=== PATIENT | female | born 1995 | race Caucasian/White ===

== ENCOUNTER → 2016-07-08 | Outpatient (REF) | payer OTHER | LOC: M SFHCWAGY 10:02 | PROVIDERS: ATTEND Nurse Practitioner Women's Health | DX: Z12.4 Encounter for screening for malignant neoplasm of cervix (principal) ==

== ENCOUNTER → 2017-03-21 | Outpatient (REF) | payer OTHER | LOC: M SFHCWAGY 17:25 | DX: R30.0 Dysuria (principal) ==

== ENCOUNTER → 2017-05-07 | Outpatient (REF) | payer OTHER ==
[2017-05-07 18:13] LABS: HEMOGLOBIN 12.5 g/dl (12.0-16.0); MEAN CORPUSCULAR HEMOGLOBIN 29.5 pg (27.0-33.0); MEAN CORPUSCULAR HGB CONC 32.9 g/dl (32.0-36.5); MEAN CORPUSCULAR VOLUME 89.6 fl (80.0-96.0); PLATELET COUNT, AUTOMATED 233 10^3/uL (150-450); RED BLOOD COUNT 4.24 10^6/uL (4.00-5.40); RED CELL DISTRIBUTION WIDTH 12.1 % (11.5-14.5); WHITE BLOOD COUNT 6.2 10^3/uL (4.0-10.0)
[2017-05-07 18:26] LABS: FREE T4 1.14 NG/DL (0.76-1.46)
[2017-05-09 10:15] LABS: TISSUE TRANSGLUTAMINASE IgA <2 U/mL (0-3)
[2017-05-09 10:15] LABS: TISSUE TRANSGLUTAMINASE IgG <2 U/mL (0-5)
== END ==
LOC: M SFHCPLAZ 11:39
DX: R53.82 Chronic fatigue, unspecified (principal); R10.9 Unspecified abdominal pain
CPT/HCPCS: 84443

== ENCOUNTER → 2017-06-13 | Outpatient (REF) | payer OTHER ==
[2017-06-13 14:45] LABS: CHLAMYDIA DNA AMPLIFICATION NEGATIVE (NEGATIVE); GC DNA AMPLIFICATION NEGATIVE (NEGATIVE)
== END ==
LOC: M SFHCWAGY 11:51
DX: Z11.3 Encounter for screening for infections with a predominantly sexual mode of transmission (principal)

== ENCOUNTER → 2017-06-19 | Outpatient (CLI) | payer OTHER | LOC: M WHC 11:29 | DX: R10.30 Lower abdominal pain, unspecified (principal) | CPT/HCPCS: 76830 ==

== ENCOUNTER → 2017-07-31 | Outpatient (REF) | payer OTHER ==
[2017-08-06 00:06] LABS: BABESIOSIS LEVEL IGG <1:10 (Neg:<1:10); BABESIOSIS LEVEL IGM <1:10 (Neg:<1:10); EBV PCR QUANTITATIVE Negative copies/mL (Negative); Lyme Disease IgG/IgM Antibodie <0.91 ISR (0.00-0.90); Lyme Disease IgM Ab Quantitati <0.80 index (0.00-0.79)
== END ==
LOC: M SFHCPLAZ 11:22
DX: R19.4 Change in bowel habit (principal); R53.82 Chronic fatigue, unspecified

== ENCOUNTER → 2017-08-01 | Outpatient (REF) | payer OTHER | LOC: M SFHCPLAZ 11:11 | DX: R19.4 Change in bowel habit (principal) ==

== ENCOUNTER → 2017-08-08 | Outpatient (CLI) | payer OTHER ==
[~2017-08-08] MED LIST: GASTROGRAFIN SOLUTION 30ML (Q9963) As Ordered; ISOVUE-370 76% 100ML VIAL (Q9967) As Ordered
== END ==
LOC: M RAD 14:23
DX: R10.31 Right lower quadrant pain (principal); N94.10 Unspecified dyspareunia; R19.4 Change in bowel habit
CPT/HCPCS: Q9963

== ENCOUNTER → 2018-05-15 | Outpatient (REF) | payer OTHER | LOC: M LAB REF 16:38 | PROVIDERS: ATTEND Physician Assistant | DX: J06.9 Acute upper respiratory infection, unspecified (principal); J02.9 Acute pharyngitis, unspecified ==

== ENCOUNTER → 2018-06-19 | Outpatient (CLI) | payer OTHER ==
[2018-06-19 09:39] LABS: BASO % 0.5 % (0.0-1.0); EOS # 0.1 10^3/uL (0.0-0.50); HEMATOCRIT 37.9 % (36.0-47.0); HEMOGLOBIN 12.7 g/dl (12.0-15.5); LYMPH # 1.9 10^3/uL (1.5-6.5); MEAN CORPUSCULAR HEMOGLOBIN 29.7 pg (27.0-33.0); MEAN CORPUSCULAR HGB CONC 33.5 g/dl (32.0-36.5); MEAN CORPUSCULAR VOLUME 88.8 fl (80.0-96.0); MONO # 0.4 10^3/uL (0.0-0.8); NEUTROPHILS # 3.5 10^3/uL (1.8-7.7); NEUTROPHILS % 59.3 % (36.0-66.0); PLATELET COUNT, AUTOMATED 185 10^3/uL (150-450); RED BLOOD COUNT 4.27 10^6/uL (4.00-5.40); WHITE BLOOD COUNT 5.9 10^3/uL (4.0-10.0)
[2018-06-19 09:55] LABS: ALBUMIN 3.8 GM/DL (3.2-5.2); ALT/SGPT 15 U/L (12-78); BILIRUBIN,DIRECT 0.2 MG/DL (0.0-0.2); BILIRUBIN,TOTAL 0.6 MG/DL (0.2-1.0); BLOOD UREA NITROGEN 11 MG/DL (7-18); CALCIUM LEVEL 8.9 MG/DL (8.5-10.1); CARBON DIOXIDE LEVEL 27 MEQ/L (21-32); CHLORIDE LEVEL 107 MEQ/L (98-107); CHOLESTEROL LEVEL 170 MG/DL (<200); CHOLESTEROL RISK RATIO 2.698 (<5); CREATININE FOR GFR 0.82 MG/DL (0.55-1.30); FREE T4 1.34 NG/DL (0.76-1.46); GAMMA GLUTAMYLTRANSPEPTIDASE 19 U/L (5-55); GLOMERULAR FILTRATION RATE > 60.0 (>60); GLUCOSE, FASTING 80 MG/DL (70-100); HDL CHOLESTEROL 63 MG/DL (>40); LDL CHOLESTEROL 77.8 MG/DL (<100); NON-HDL-C 107 MG/DL; POTASSIUM SERUM 4.1 MEQ/L (3.5-5.1); SODIUM LEVEL 140 MEQ/L (136-145); TRIGLYCERIDES LEVEL 146 MG/DL (<150)
[2018-06-19 09:57] LABS: HEMOGLOBIN A1c 5.1 %
== END ==
LOC: M WUC 08:17
PROVIDERS: ATTEND Physician Assistant
DX: Z13.29 Encounter for screening for other suspected endocrine disorder (principal); R10.31 Right lower quadrant pain

== ENCOUNTER → 2018-10-22 | Outpatient (CLI) | payer OTHER ==
--- NOTE | 2018-10-22 11:02 | REP ---
Hepatobiliary scan and gallbladder ejection fraction: History: Right upper quadrant pain Technique: 6.6 mCi of technetium-99m mebrofenin was injected and sequential anterior images are acquired. 65 minutes after the mebrofenin injection, the patient consumed 8 ounces Ensure and an additional 60 minutes of imaging was acquired. Regions of interest are plotted around the gallbladder. Findings: The initial hepatocellular parenchymal uptake phase is normal and homogeneous. Intra- and extra-hepatic bile ducts are labeled by the 10 -minute image. The gallbladder is first labeled on the 10 -minute image. There is normal washout from the liver parenchyma into the gallbladder and small intestine on subsequent images. The gallbladder ejection fraction is 90 %. Values greater than 35 % are considered normal with this technique. Impression: Normal hepatobiliary scan and normal gallbladder ejection fraction. Electronically Signed by Kalen Nye MD 10/22/2018 10:54 A
== END ==
LOC: M RAD 07:55
PROVIDERS: ATTEND Surgery
DX: R10.11 Right upper quadrant pain (principal)

== ENCOUNTER → 2018-11-06 | Outpatient (REF) | payer OTHER ==
[2018-11-06 14:05] LABS: CHLAMYDIA DNA AMPLIFICATION NEGATIVE (NEGATIVE); GC DNA AMPLIFICATION NEGATIVE (NEGATIVE)
== END ==
LOC: M SFHCWAGY 11:47
PROVIDERS: ATTEND Nurse Practitioner Women's Health
DX: Z11.3 Encounter for screening for infections with a predominantly sexual mode of transmission (principal)

== ENCOUNTER → 2018-11-06 | Outpatient (REF) | payer OTHER | LOC: M SFHCWAGY 09:09 | PROVIDERS: ATTEND Nurse Practitioner Women's Health | DX: Z12.4 Encounter for screening for malignant neoplasm of cervix (principal) ==

== ENCOUNTER → 2018-11-16 | Outpatient (REF) | payer OTHER | LOC: M SFHCPLAZ 13:34 | PROVIDERS: ATTEND Nurse Practitioner Women's Health | DX: R35.0 Frequency of micturition (principal) ==

== ENCOUNTER → 2018-11-16 | Outpatient (REF) | payer OTHER ==
[2018-11-16 16:18] LABS: CHLAMYDIA DNA AMPLIFICATION NEGATIVE (NEGATIVE); GC DNA AMPLIFICATION NEGATIVE (NEGATIVE)
== END ==
LOC: M SFHCWAGY 13:45
PROVIDERS: ATTEND Nurse Practitioner Women's Health
DX: Z11.3 Encounter for screening for infections with a predominantly sexual mode of transmission (principal)

== ENCOUNTER → 2019-03-18 | Outpatient (REF) | payer OTHER ==
[2019-03-18 22:44] LABS: CHLAMYDIA DNA AMPLIFICATION NEGATIVE (NEGATIVE); GC DNA AMPLIFICATION NEGATIVE (NEGATIVE)
== END ==
LOC: M SFHCLERA 17:30
PROVIDERS: ATTEND Physician Assistant
DX: R30.0 Dysuria (principal)